=== PATIENT | female | born 1980 | race Caucasian/White ===

== ENCOUNTER 2022-04-26 00:40 | Emergency (ER) | payer MEDICAID ==
[~2022-04-26] VITALS: Ht 162.6 cm; Wt 61.4 kg
[~2022-04-26 00:40] MED LIST: DOCU-28 PO; GABA-532 PO; IBUP-1985 PO; TRAM50TA2 PO
[2022-04-26] MEDS ORDERED: ibuprofen 200mg tablet PO ONE (08:15)
[2022-04-26] MEDS ORDERED: CHLO25TA3 PO (08:17)
[2022-04-26] MEDS ORDERED: LISI20TA28 PO (08:18)
[2022-04-26 10:34] VITALS: BP 117/82
== END 2022-04-26 10:35 | disposition home or self-care (01) ==
LOC: ER 00:40
DX: S84.11XA Injury of peroneal nerve at lower leg level, right leg, initial encounter (principal); F17.200 Nicotine dependence, unspecified, uncomplicated; Z79.899 Other long term (current) drug therapy; X50.1XXA Overexertion from prolonged static or awkward postures, initial encounter; Y93.89 Activity, other specified; Y92.89 Other specified places as the place of occurrence of the external cause; Y99.8 Other external cause status
CPT/HCPCS: 73590; 93971; 99284; A6449